=== PATIENT | female | born 1985 | race American Indian/Alaskan Native ===

== ENCOUNTER 2023-11-28 21:37 | Emergency (ER) | payer OTHER ==
[~2023-11-28] VITALS: Ht 160 cm; Wt 68.4 kg
[~2023-11-28 21:37] MED LIST: ALLEGRA ALLERGY60 MG PO; ASPIRIN EC81 MG PO; FLONASE ALLERG9.9 ML NAS; ZYRTEC10 MG PO
--- OUTSIDE RECORDS SUMMARY | 2023-11-28 21:40 | XMS ---
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 E.D. VISIT COUNT (12 MO.) 1 S[facility]ER [place] TOTAL 1 NOTE: Visits indicate total known visits. ED/UCC VISIT TRACKING (12 MO.) 11/28/2023 21:38 [facility] [place] TYPE: Emergency COMPLAINT: - TORN EARLOBE INPATIENT VISIT TRACKING (12 MO.) No inpatient visits to display in this time frame [email or web address]
[2023-11-28] MEDS ORDERED: DIPHTH,PERTUSS(ACELL),TET VAC 0.5 ML SYRINGE IM ONE (23:30)
[2023-11-28 23:42] VITALS: BP 106/79
== END 2023-11-28 23:42 | disposition home or self-care (01) ==
LOC: ED 21:37
DX: S01.311A Laceration without foreign body of right ear, initial encounter (principal); W54.1XXA Struck by dog, initial encounter; Y92.009 Unspecified place in unspecified non-institutional (private) residence as the place of occurrence of the external cause; Z23 Encounter for immunization; Z79.51 Long term (current) use of inhaled steroids; Z79.899 Other long term (current) drug therapy
CPT/HCPCS: 12011; 90471; 90715; 99283